=== PATIENT | female | born 1980 | race Caucasian/White ===

== ENCOUNTER 2017-07-15 21:35 | Emergency (ER) | payer OTHER ==
[~2017-07-15] VITALS: Ht 167.6 cm; Wt 75.0 kg
[2017-07-15 21:41] VITALS: BP 123/59
[2017-07-15 22:46] LABS: EOSINOPHIL (%) 0.8 % (0-5); EOSINOPHIL COUNT 0.1 K/uL (0-0.3); HEMATOCRIT 42.9 % (36.0-46.0); IMMATURE GRANULOCYTE (%) 0.2 % (0.0-0.7); INSTRUMENT ABS NEUTROPHIL CT 10.1 K/uL; LYMPHOCYTE COUNT 1.5 K/uL (1.0-2.8); MCHC 32.9 G/DL (30.0-36.0); MCV 85.3 FL (83-99); MEAN PLAT.VOLUME 9.8 uM^3 (9.5-12.4); MONOCYTE (%) 3.7 % (3-12); MONOCYTE COUNT 0.5 K/uL (0-0.8); NEUTROPHIL (%) 82.6 % (45-76); NEUTROPHIL COUNT 10.1 K/uL (1.8-6.4); PLATELET COUNT 322 K/uL (156-360); RBC DIS.WIDTH-CV 13.1 % (11.8-14.6); RBC DIS.WIDTH-SD 40.7 % (39-53); RED BLOOD COUNT 5.03 M/uL (3.80-5.20); WHITE BLOOD COUNT 12.3 K/uL (4.1-10.2)
[2017-07-15 22:51] LABS: CHLORIDE 109 mEq/L (99-109); POTASSIUM 3.1 mEq/L (3.7-5.4); SODIUM 141 mEq/L (136-147)
[2017-07-15 22:53] LABS: GLUCOSE 98 mg/dL (70-99)
[2017-07-15 22:54] LABS: ANION GAP 12 MEQ/L (2-14)
[2017-07-15 22:55] LABS: TOTAL BILIRUBIN 0.5 mg/dL (0.0-1.0)
[2017-07-15 22:56] LABS: ALKALINE PHOSPHATASE 74 IU/L (3-129)
[2017-07-15 22:57] LABS: GFR ESTIMATE (CALCULATED) > 59 mL/min/
[2017-07-15 22:58] LABS: UREA NITROGEN (BUN) 13 mg/dL (9-23)
[2017-07-15 23:00] LABS: LIPASE 93 U/L (1.0-51.0)
[2017-07-15 23:06] LABS: QUANTITATIVE HCG < 4.0 MIU/ML
== END 2017-07-15 23:01 | disposition left against medical advice (07) ==
LOC: RME 21:35 → EME 21:35 → RME 23:01
PROVIDERS: Physician Assistant
DX: R11.10 Vomiting, unspecified (principal); R50.9 Fever, unspecified
CPT/HCPCS: 80053; 83690; 84702; 85025; 99281; 99284; J7030